=== PATIENT | female | born 1980 | race Caucasian/White ===

== ENCOUNTER 2024-05-12 07:02 | Emergency (ER) | payer MEDICARE ==
[~2024-05-12] VITALS: Ht 167.6 cm; Wt 79.5 kg
[2024-05-12 07:21] VITALS: TEMP 98.5
[2024-05-12] MEDS ORDERED: Morphine 4 MG/ML VIAL IV PRN (07:45)
[2024-05-12] MEDS ORDERED: LORazepam 2 MG/ML 1 ML VIAL IV ONE (07:45)
[2024-05-12] MEDS ORDERED: NS 1,000 ML IV ONE ×2 (07:45→10:00)
[2024-05-12] MEDS ORDERED: Ondansetron 4 MG/2 ML VIAL IV ONE (07:45)
[2024-05-12 08:15] LABS: GRAN # 2.3 K/mm3 (1.4-6.5); GRAN % 49.4 % (42.2-75.2); HEMATOCRIT 39.6 % (37.0-47.0); HEMOGLOBIN 13.5 g/dl (12.5-16.0); LYMPH # 2.1 K/mm3 (1.2-3.4); LYMPH % 44.6 % (20.0-51.0); MEAN CELL VOLUME 91 fl (80.0-100.0); MEAN CORPUSCULAR HEMOGLOBIN 31 pg (27-31); MEAN CORPUSCULAR HGB CONC 34 g/dl (33.0-37.0); MEAN PLATELET VOLUME 10.4 fl (7.4-10.4); MONO # 0.3 K/mm3 (0.1-0.6); MONO % 5.8 % (1.7-9.3); PLATELET COUNT 171 K/mm3 (130-400); RED BLOOD COUNT 4.35 M/mm3 (4.10-5.30); REDCELL DISTRIBUTION WIDTH-CV 12.2 % (11.5-14.5)
[2024-05-12 08:30] LABS: PH 5.5 (5.0-8.5); URINE APPEARANCE CLEAR (CLEAR/HAZY); URINE BLOOD NEGATIVE (NEGATIVE); URINE COLOR YELLOW (YELLOW); URINE GLUCOSE NEGATIVE (NEGATIVE); URINE KETONE NEGATIVE (NEGATIVE); URINE NITRATE NEGATIVE (NEGATIVE); URINE PROTEIN(semi-quant) TRACE (NEGATIVE)
[2024-05-12 08:36] LABS: ALBUMIN 3.8 g/dL (3.5-5.0); BILIRUBIN,TOTAL 0.5 mg/dL (0.2-1.2); CALCIUM 8.7 mg/dL (8.4-10.2); CREATININE, serum 0.67 mg/dL (0.57-1.11); POTASSIUM 3.5 mEq/L (3.5-4.5); TOTAL PROTEIN 6.7 g/dl (6.2-8.1)
[2024-05-12 08:42] LABS: COLLECTION METHOD CLEAN CATCH
[2024-05-12] MEDS ORDERED: Morphine 4 MG/ML VIAL IV ONE (08:45)
[2024-05-12] MEDS ORDERED: Iohexol 300 - 100 ML VIAL IV ONE (09:11)
[2024-05-12] MEDS ORDERED: NS 100 ML IV SCH (09:12)
[2024-05-12] MEDS ORDERED: PERCOCET 325 MG1 TAB PO (10:24)
[2024-05-12 10:43] VITALS: BP 123/80; PULSE 79
== END 2024-05-12 10:43 | disposition home or self-care (01) ==
LOC: COL.ER 07:02
PROVIDERS: Personal Emergency Response Attendant
DX: R10.811 Right upper quadrant abdominal tenderness (principal); R10.812 Left upper quadrant abdominal tenderness; R11.2 Nausea with vomiting, unspecified; Z98.84 Bariatric surgery status; Z86.718 Personal history of other venous thrombosis and embolism; Z79.891 Long term (current) use of opiate analgesic
CPT/HCPCS: J2060; J2270; J2405; J7030; Q9967